=== PATIENT | male | born 1975 | race Caucasian/White ===

== ENCOUNTER 2023-09-19 06:33 | Day surgery (SDC) | payer OTHER ==
[~2023-09-19] VITALS: Ht 180.3 cm; Wt 83.9 kg
[2023-09-19 09:09] VITALS: BP 114/77
== END 2023-09-19 09:24 | disposition home or self-care (01) | DRG 394 ==
LOC: ENDO 06:33 → ORM 08:00 → ENDO 08:00 → ORM 08:40 → ENDO 08:40
PROVIDERS: ATTEND Surgery
PROC: 0DBN8ZX Excision of Sigmoid Colon, Via Natural or Artificial Opening Endoscopic, Diagnostic (ICD-10-PCS; principal; 2023-09-19)
PROC: 0DBB8ZX Excision of Ileum, Via Natural or Artificial Opening Endoscopic, Diagnostic (ICD-10-PCS; 2023-09-19)
PROC: 3E0H8KZ Introduction of Other Diagnostic Substance into Lower GI, Via Natural or Artificial Opening Endoscopic (ICD-10-PCS; 2023-09-19)
DX: D12.5 Benign neoplasm of sigmoid colon (principal); K63.3 Ulcer of intestine; K63.5 Polyp of colon